=== PATIENT | female | born 1980 | race African-American/Black ===

== ENCOUNTER 2019-02-07 15:02 | Emergency (ER) | payer OTHER ==
[2019-02-07 15:09] VITALS: BP 145/78; PULSE 57; TEMP 98; BMI 31.7
[2019-02-07] MEDS ORDERED: ACETAMINOPHEN 500 MG TABLET (FP) PO ONE (15:11)
--- NOTE | 2019-02-07 15:11 | PDOC ---
Rapid Medical Evaluation Time Seen by Provider: 02/07/19 15:07 Medical Evaluation: Allergies Allergy/AdvReac Type Severity Reaction Status Date / Time shellfish derived Allergy Severe THROAT Verified 11/06/14 11:28 CLOSES 02/07/19 15:07 I have performed a brief in-person evaluation of this patient. The patient presents with a chief complaint of: "I think I am having a miscarriage" (pt unsure if she is , has not had a confirmed yet) (+)vaginal bleeding since yesterday. Not using pads, only bleeds when she urinates. (+) golf ball size clot came out yesterday. (+) pelvic pain which feels like contractions. LMP Jan 16, lasted 5 days. Ab2. Pertinent physical exam findings: discomfort from pain. I have ordered the following: UCG, tylenol The patient will proceed to the ED for further evaluation. Discharge Disposition - Diagnosis Vaginal bleeding - Referrals - Patient Instructions - Post Discharge Activity
[2019-02-07] MEDS ORDERED: ACETAMINOPHEN 325 MG TABLET (FP) ONE (16:00)
--- NOTE | 2019-02-07 16:50 | PDOC ---
*Physical Exam - Vital Signs Last Vital Signs Temp Pulse Resp BP Pulse Ox 98.0 F 57 L 16 145/78 100 02/07/19 15:06 02/07/19 15:06 02/07/19 15:06 02/07/19 15:06 02/07/19 15:06 - Physical Exam Comments: 02/07/19 16:42 HPI: 38yo woman with PMH fibroids, sickle cell trait, HTN presenting with abdominal pain and vaginal bleeding since last night. Patient has baseline dysmenorrhea, heavy regular periods with painful cramps. LMP was January 15. Patient is concerned because her current abdominal pain feels like her prior spontaneous in 2014. Last night her pain and bleeding came on gradually and she passed a "golfball" sized clot. Her pain is low and central in her abdomen and feels like a downward pressure she describes as a contraction. The pain has worsened since yesterday and is now associated with three episodes of NBNB vomiting. Denies fevers but feels chilled, lightheaded, and diaphoretic with the pain. Also endorses increased urinary frequency over the past 3-5 days, denies dysuria. Has been diagnosed with fibroids, never told she has a cyst or fibroid. Hx of abnormal pap smears with culposcopy with negative margins, normal PAPs since. Denies CP / SOB / BM changes. NKDA Meds: "Water Pill" for Htn 5mg PMH: as above +asthma PSH: per chart ED Treatment Course - ADDITIONAL ORDERS Additional order review: Laboratory Results 02/07/19 15:31 Urine HCG, Qual Negative - Medications Given in the ED: ED Medications Discontinued Medications Generic Name Dose Route Start Last Admin Trade Name Nirmala PRN Reason Stop Dose Admin Acetaminophen 1,000 mg 02/07/19 15:11 02/07/19 16:04 Tylenol - PO 02/07/19 15:12 1,000 mg ONCE ONE Administration Discharge - Discharge Information Clinical Impression/Diagnosis: Vaginal bleeding - Follow up/Referral Referrals: Alexa Alcazar MD [Primary Care Provider] - - Patient Discharge Instructions - Post Discharge Activity
--- NOTE | 2019-02-07 16:56 | PDOC ---
History of Present Illness - General Chief Complaint: Vaginal Bleeding Stated Complaint: POSSIBLE MISCARIAGE Time Seen by Provider: 02/07/19 15:07 History Source: Patient, Significant Other Exam Limitations: No Limitations - History of Present Illness Initial Comments: 02/07/19 16:51 HPI: 38yo woman with PMH fibroids, sickle cell trait, HTN presenting with abdominal pain and vaginal bleeding since last night. Patient has baseline dysmenorrhea, heavy regular periods with painful cramps. LMP was January 15. Patient is concerned because her current abdominal pain feels like her prior spontaneous in 2014. Last night her pain and bleeding came on gradually and she passed a "golfball" sized clot. Her pain is low and central in her abdomen and feels like a downward pressure she describes as a contraction. The pain has worsened since yesterday and is now associated with three episodes of NBNB vomiting. Denies fevers but feels chilled, lightheaded, and diaphoretic with the pain. Also endorses increased urinary frequency over the past 3-5 days, denies dysuria. Has been diagnosed with fibroids, never told she has a cyst or fibroid. Hx of abnormal pap smears with culposcopy with negative margins, normal PAPs since. Denies CP / SOB / BM changes. NKDA Meds: "Water Pill" for Htn 5mg PMH: as above +asthma PSH: per chart Past History - Travel Traveled outside of the country in the last 30 days: No Close contact w/someone who was outside of country & ill: No - Past Medical History Allergies/Adverse Reactions: Allergies Allergy/AdvReac Type Severity Reaction Status Date / Time shellfish derived Allergy Severe THROAT Verified 02/07/19 15:09 CLOSES Home Medications: Ambulatory Orders Ibuprofen [Motrin -] 600 mg PO QID PRN #28 tablet 11/09/14 Amlodipine Besylate 5 mg PO DAILY 02/07/19 hydrALAZINE HCL [Apresoline -] 0 mg PO DAILY 02/07/19 Anemia: (SICKLE CELL TRAIT) Asthma: Yes COPD: No HTN: Yes (DURING ) - Reproductive History Is Patient Now?: Yes (#): 6 Para: 3 Therapeutic (s) & number: Yes Spontaneous : 2 - Psycho Social/Smoking Cessation Hx Smoking History: Never smoked Have you smoked in the past 12 months: Yes Number of Cigarettes Smoked Daily: 5 'Breaking Loose' booklet given: 11/09/14 Hx Alcohol Use: Yes Drug/Substance Use Hx: No Substance Use Type: None Review of Systems - Review of Systems Able to Perform ROS?: Yes Is the patient limited Wallisian proficient: Yes Constitutional: Yes: Chills, Diaphoresis. No: Fever, Night Sweats, Weakness, Weight Stable HEENTM: No: Eye Pain, Recent change in vision, Nose Congestion, Tinnitus, Throat Swelling, Mouth Pain Respiratory: No: Cough, Shortness of Breath, Wheezing Cardiac (ROS): No: Chest Pain, Edema, Irregular Heart Rate, Palpitations, Syncope, Chest Tightness ABD/GI: Yes: Nausea, Vomiting. No: Constipated, Diarrhea, Indigestion : Yes: Frequency. No: Burning, Dysuria, Discharge, Hematuria, Incontinence, Pain Musculoskeletal: No: Back Pain, Joint Pain, Muscle Weakness, Neck Pain Integumentary: No: Bruising, Pruritus, Rash Neurological: No: Headache, Numbness, Tingling, Weakness Psychiatric: No: Stressors, Change in Appetite Endocrine: No: Intolerance to Cold, Intolerance to Heat, Increased Thirst, Increased Urine, Unexplained Weight Gain, Unexplained Weight Loss Hematologic/Lymphatic: No: Anemia, Blood Clots, Easy Bleeding All Other Systems: Reviewed and Negative *Physical Exam - Vital Signs Last Vital Signs Temp Pulse Resp BP Pulse Ox 98.0 F 57 L 16 145/78 100 02/07/19 15:06 02/07/19 15:06 02/07/19 15:06 02/07/19 15:06 02/07/19 15:06 - Physical Exam Comments: 02/07/19 16:53 Vitals reviewed, notable for HTN, otherwise AFVSS WDWN woman, no acute distress, sitting on hospital bed EOMI, MMM, NCAT, normal morphologies RRR, nl s1/s2, no murmurs appreciated CTABL, normal WOB, no wheezes / rales / rhonchi Soft, nontender - "pain" suprapubically but not reproducible with exam, nondistended WWP, no clubbing / cyanosis / edema 2+ radial and PT pulses alert and oriented, MAEE, CN grossly intact 02/07/19 17:47 SSE: normal external female genitalia and vaginal mucosa, no lesions, some blood present, OS visualized and closed, no other discharge observed BME: some discomfort with exam however, no CMT, normal size uterus without adnexal tenderness or fullness, no fibroids appreciated ED Treatment Course - LABORATORY CBC & Chemistry Diagram: 02/07/19 17:35 02/07/19 17:35 - ADDITIONAL ORDERS Additional order review: Laboratory Results 02/07/19 15:31 Urine HCG, Qual Negative - Medications Given in the ED: ED Medications Discontinued Medications Generic Name Dose Route Start Last Admin Trade Name Nirmala PRN Reason Stop Dose Admin Acetaminophen 1,000 mg 02/07/19 15:11 02/07/19 16:04 Tylenol - PO 02/07/19 15:12 1,000 mg ONCE ONE Administration Medical Decision Making - Medical Decision Making 02/07/19 16:56 38yo woman with PMH fibroids, sickle cell trait, HTN presenting with abdominal pain and vaginal bleeding since last night with clot passage and waves of squeezing pain. DDX: Miscarriage vs fibroid pain vs dysfunctional uterine bleeding vs primary dysmenorrhea vs normal menses with superimposed UTI symptoms. Urine test negative. -UA, UCx -CBC, CMP -TVUS -Pelvic exam 02/07/19 18:56 -Ordered for 30mg IM toradol -Taking patient to [place] -UA with gross blood - c/w grossly bloody sample 2/2 vaginal bleeding -No signs of UTI -No leukocytosis or anemia, normal LFTs 02/07/19 20:08 -TVUS without anexal pathology, ?fibroid noted in uterus c/w outside diagnosis of fibroids -Pain likely related to menses, patient to followup with her [employer]TER Discharge - Discharge Information Problems reviewed: Yes Clinical Impression/Diagnosis: Vaginal bleeding Condition: Improved Disposition: HOME - Admission No - Follow up/Referral Referrals: Alexa Alcazar MD [Primary Care Provider] - - Patient Discharge Instructions Patient Printed Discharge Instructions: DI for Uterine Fibroids, DI for Abnormal Uterine Bleeding Additional Instructions: 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 Please return to the ED for any new or concerning symptoms including but not limited to: pain unrelieved by over the counter pain medications, inability to tolerate food by mouth, bleeding exceeding the rate of 2 pads per hour for 2 hours - or bleeding beyond your usual menses. - Post Discharge Activity
--- NOTE | 2019-02-07 17:04 | PDOC ---
Attending Attestation - Resident Resident Name: FitoJanAndrea - ED Attending Attestation I have performed the following: I have examined & evaluated the patient, The case was reviewed & discussed with the resident, I agree w/resident's findings & plan, Exceptions are as noted - HPI HPI: 02/07/19 17:02 38y F hx of fibroids, htn, sickle cell trait, presents with lower abd pain and vag spotting since last nigh. Pain is squeezing presurelike in nature, gradual onset, associated vaginal spotting. Pt notes she passed a golf bll sized clot last night but pain has worsened. Pain is assoicated with vomiting and diapohersis and feels similar in nature to prior fibroids and periods. Pt also endorses urinary frequency consistent with a prior UTI in the past. No fever/ cihlls, cp, sob, dizziness, back pain. 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
[2019-02-07 18:06] LABS: EOS % 1.6 % (0-4.5); HEMATOCRIT 34.1 % (32.4-45.2); HEMOGLOBIN 10.9 GM/dL (10.7-15.3); LYMPH % 22.7 % (8-40); MCH 24.8 pg (25.7-33.7); MCHC 31.9 g/dl (32.0-36.0); MEAN CELL VOLUME 77.8 fl (80-96); MEAN PLT VOLUME 8.6 fl (7.5-11.1); MONO % 11.3 % (3.8-10.2); NEUT % 63.4 % (42.8-82.8); PLATELET COUNT 380 K/MM3 (134-434); RBC 4.38 M/mm3 (3.60-5.2); RDW 17.6 % (11.6-15.6); WHITE BLOOD COUNT 7.9 K/mm3 (4.0-10.0)
[2019-02-07 18:20] LABS: HYALINE CASTS 42 /lpf (0-8); URINE APPEARANCE CLEAR; URINE BACTERIA 3.8 /hpf (NEGATIVE); URINE BILIRUBIN NEGATIVE (NEGATIVE); URINE COLOR YELLOW; URINE GLUCOSE (UA) NEGATIVE (NEGATIVE); URINE KETONE TRACE (NEGATIVE); URINE LEUK ESTERASE NEGATIVE (NEGATIVE); URINE NITRITE NEGATIVE (NEGATIVE); URINE PROTEIN 3+ (NEGATIVE); URINE RBC 928 /hpf (0-4); URINE UROBILINOGEN 0.2 mg/dL (0.2-1.0); URINE WBC 1 /hpf (0-5)
[2019-02-07 18:35] LABS: ALBUMIN 4.3 g/dl (3.4-5.0); BILIRUBIN,TOTAL 0.5 mg/dL (0.2-1); BLOOD UREA NITROGEN 8.1 mg/dL (7-18); CALCIUM 9.4 mg/dL (8.5-10.1); CREATININE 0.8 mg/dL (0.55-1.3); POTASSIUM 3.8 mmol/L (3.5-5.1); TOT PROT 8.4 g/dl (6.4-8.2)
[2019-02-07] MEDS ORDERED: KETOROLAC TROMETHAMINE 30 MG/1 ML VIAL IM ONE (18:55)
[2019-02-07] MEDS ORDERED: KETOROLAC TROMETHAMINE 30 MG/1 ML VIAL ONE (19:11)
== END 2019-02-07 20:31 | disposition home or self-care (01) ==
LOC: JER 15:02
PROC: 3E0233Z Introduction of Anti-inflammatory into Muscle, Percutaneous Approach (ICD-10-PCS; principal; 2019-02-07)
DX: N93.9 Abnormal uterine and vaginal bleeding, unspecified (principal); D21.9 Benign neoplasm of connective and other soft tissue, unspecified; D57.3 Sickle-cell trait; I10 Essential (primary) hypertension; Z91.013 Allergy to seafood; Z72.0 Tobacco use; J45.909 Unspecified asthma, uncomplicated
CPT/HCPCS: 36415; 76830-TC; 80053; 81003; 84703; 85025; 87086; 96372; 99283-25

== ENCOUNTER 2019-10-24 19:48 | Emergency (ER) | payer OTHER ==
[2019-10-24 20:04] VITALS: BP 137/94; PULSE 93; TEMP 100.2; BMI 32.5
--- NOTE | 2019-10-24 20:12 | PDOC ---
Rapid Medical Evaluation Chief Complaint: Sore Throat Time Seen by Provider: 10/24/19 19:54 Medical Evaluation: Allergies Allergy/AdvReac Type Severity Reaction Status Date / Time shellfish derived Allergy Severe THROAT Verified 10/24/19 20:03 CLOSES Vital Signs Temp Pulse Resp BP Pulse Ox 100.2 F H 93 H 18 137/94 100 10/24/19 20:01 10/24/19 20:01 10/24/19 20:01 10/24/19 20:01 10/24/19 20:01 10/24/19 20:09 HPI: COVID-19 CDC guideline data points: The patient is a 39 y/o female with h/o asthma and sickle cell trait who presents to the ED with complaint of throat pain, fever and chills that started today. The patient states she woke up in a pile of sweat earlier. She denies n/v/d/c. She denies any cough. She denies recent travel or COVID contacts. She is not a cigarette smoker. She took Tylenol 4 hours ago for her symptoms. ROS: NEGATIVE: difficulty breathing, shortness of breath, chest pain, lightheadedness, dizziness, nausea, vomiting and diarrhea. Other 12 point ROS reviewed and negative. Positive: sore throat Exam: General: NAD, Well-Appearing, Awake, Alert Oriented x3. Vital signs stable. ENT: No rhinorrhea or nasal congestion. b/l tonsillar edema with moderate erythema, no exudates, + anterior cervical lymphadenopathy appreciated Neck: FROM, no midline tenderness. Lungs: Clear to auscultation bilaterally without wheezes, rhonchi or rales. Normal excursion. Patient is able to speak in full sentences. Heart: HR: 93, Regular rhythm, S1-S2 present, no murmurs rubs or gallops. Abdomen: Non-distended. MSK/Extremities: No decrease ROM, No obvious deformities. No obvious cyanosis noted. Neuro: Normal Gait, Cranial Nerves II through XII Grossly Intact. Skin: No obvious rashes, bruising. Color Normal Appearing. Assessment/Plan: The patient is a 39 y/o female with h/o asthma and sickle cell trait who presents to the ED with complaint of throat pain, fever and chills that started today. Patient has a history of this/these comorbidities: asthma, sickle cell trait, denies recent travel and known COVID exposure. Patient does not meet testing criteria at this time. ASSESSMENT: Denies recent travel and known Covid exposure. Treatment: strep swab ordered 10/24/19 20:53 Laboratory Tests 10/24/19 20:01 Group A Strep Rapid Negative Pt made aware that her strep swab is negative. She has been made aware that her symptoms are likely viral. She should f/u with her primary doctor within 2 days. Discharge Disposition - Diagnosis Sore throat - Discharge Dispostion Disposition: HOME Condition at time of disposition: Stable - Referrals - Patient Instructions Printed Discharge Instructions: [facility]-Coronavirus Instructions, [facility] COVID-19 Isolation Protocol, DI for Viral Pharyngitis Additional Instructions: You were seen for your cough and possible Coronavirus (COVID-19) Please call the [facility] testing center to make an appointment at or you can call [facility] at from 8:30 AM to 6 PM; or you can visit the [facility] website: [email or web address] for more information about testing at the [facility]. Take Tylenol 650 mg every 6 hours as needed for fever or pain. You may take Robitussin or other [id number] cough syrup. Follow the dosing instructions on the bottle. Warm tea, honey, and salt water gargles may help your symptoms. Please take precautions and self quarantine for 2 weeks and follow-up with your primary care doctor and the Department of Health. Return to the nearest emergency department for shortness of breath, difficulty breathing, chest pain, or if you have any changes in your symptoms. You were tested for strep throat which was negative. Follow up with your primary doctor within 2 days for clearance back to work. - Post Discharge Activity
== END 2019-10-24 21:20 | disposition home or self-care (01) ==
LOC: JER 19:48
DX: R07.0 Pain in throat (principal)
CPT/HCPCS: 87070; 87880; 99282-25

== ENCOUNTER 2021-06-09 14:22 | Emergency (ER) | payer OTHER ==
[2021-06-09 14:56] VITALS: BP 126/85; PULSE 60; TEMP 97.9; BMI 31.7
[2021-06-09] MEDS ORDERED: SODIUM CHLORIDE 0.9% 500 ML INFUS.BAG IV ONE (15:19)
[2021-06-09] MEDS ORDERED: ONDANSETRON 4 MG/2 ML VIAL IVPUSH ONE (15:20)
[2021-06-09] MEDS ORDERED: ONDANSETRON 4 MG/2 ML VIAL ONE (15:25)
[2021-06-09 16:12] LABS: BASO % 1.3 % (0-2.0); EOS % 3.9 % (0-4.5); HEMATOCRIT 35.9 % (32.4-45.2); LYMPH % 33.5 % (8-40); MCH 22.8 pg (25.7-33.7); MCHC 30.6 g/dl (32.0-36.0); MEAN CELL VOLUME 74.6 fl (80-96); MEAN PLT VOLUME 8.3 fl (7.5-11.1); MONO % 13.4 % (3.8-10.2); NEUT % 47.9 % (42.8-82.8); PLATELET COUNT 569 10^3/uL (134-434); RBC 4.82 M/mm3 (3.60-5.2); RDW 19.7 % (11.6-15.6); WHITE BLOOD COUNT 7.8 K/mm3 (4.0-10.0)
[2021-06-09 16:26] LABS: CALCIUM 10.7 mg/dL (8.5-10.1)
[2021-06-09 16:27] LABS: ALBUMIN 4.3 g/dl (3.4-5.0); BLOOD UREA NITROGEN 9.5 mg/dL (7-18)
[2021-06-09 16:30] LABS: CREATININE 0.7 mg/dL (0.55-1.3)
[2021-06-09 16:31] LABS: BILIRUBIN,TOTAL 0.4 mg/dL (0.2-1); TOT PROT 8.9 g/dl (6.4-8.2)
[2021-06-09 16:45] LABS: URINE APPEARANCE CLEAR; URINE BILIRUBIN NEGATIVE (NEGATIVE); URINE COLOR YELLOW; URINE GLUCOSE (UA) NEGATIVE (NEGATIVE); URINE KETONE NEGATIVE (NEGATIVE); URINE LEUK ESTERASE NEGATIVE (NEGATIVE); URINE NITRITE NEGATIVE (NEGATIVE); URINE PROTEIN NEGATIVE (NEGATIVE)
== END 2021-06-09 17:30 | disposition home or self-care (01) ==
LOC: JER 14:22
PROC: 3E033GC Introduction of Other Therapeutic Substance into Peripheral Vein, Percutaneous Approach (ICD-10-PCS; principal; 2021-06-09)
DX: R11.10 Vomiting, unspecified (principal); F12.99 Cannabis use, unspecified with unspecified cannabis-induced disorder
CPT/HCPCS: 36415; 80053; 81003; 83690; 84703; 85025; 87086; 99284-25

== ENCOUNTER 2022-03-02 04:05 | Day surgery (SDC) | payer OTHER ==
[2022-02-27 12:51] VITALS: BMI 31.7
[2022-03-02] MEDS ORDERED: GABAPENTIN 300 MG CAPSULE ONE (06:25)
[2022-03-02] MEDS ORDERED: PHENAZOPYRIDINE HCL 100 MG TABLET (FP) ONE (06:25)
[2022-03-02] MEDS ORDERED: ceFAZolin SODIUM 1 GM VIAL ONE (06:25)
[2022-03-02] MEDS ORDERED: ACETAMINOPHEN INJECTION 100 ML IVPB ONE (06:39)
[2022-03-02] MEDS ORDERED: ACETAMINOPHEN 1000 MG/100 ML BAG IVPB ONE (07:00)
[2022-03-02] MEDS ORDERED: GABAPENTIN 300 MG CAPSULE PO ONE (07:00)
[2022-03-02] MEDS ORDERED: PHENAZOPYRIDINE HCL 100 MG TABLET (FP) PO ONE (07:00)
[2022-03-02] MEDS ORDERED: TRANEXAMIC ACID 1000 MG/10 ML VIAL IVPUSH ONE (07:00)
[2022-03-02] MEDS ORDERED: CEFAZOLIN 2 GM in DEXTROSE 5%-WATER - 100 ML IVPB ONE (07:00)
[2022-03-02] MEDS ORDERED: BUPIVACAINE HCL/PF 0.5% (5MG/ML) 10 ML VIAL ONE ×2 (07:33→07:40)
[2022-03-02] MEDS ORDERED: BUPIVACAINE LIPOSOME/PF (EXPAREL) 266 MG/20 ML VIAL ONE (07:33)
[2022-03-02] MEDS ORDERED: MIDAZOLAM HCL 2 MG/2 ML SINGLE DOSE VIAL ONE (07:34)
[2022-03-02] MEDS ORDERED: LIDOCAINE HCL/PF 2% SDV 5ML VIAL ONE (07:56)
[2022-03-02] MEDS ORDERED: PROPOFOL 20 ML ONE (07:56)
[2022-03-02] MEDS ORDERED: ONDANSETRON 4 MG/2 ML VIAL ONE (07:56)
[2022-03-02] MEDS ORDERED: DEXAMETHASONE SOD PHOSPHATE 4 MG/1 ML VIAL ONE ×2 (07:56→08:22)
[2022-03-02] MEDS ORDERED: ROCURONIUM BROMIDE 50 MG/5 ML SYRINGE ONE ×2 (08:01→08:32)
[2022-03-02] MEDS ORDERED: ceFAZolin SODIUM 1 GM VIAL IVPB ONE (08:20)
[2022-03-02] MEDS ORDERED: TRANEXAMIC ACID 1000 MG/10 ML VIAL ONE (08:21)
[2022-03-02] MEDS ORDERED: KETOROLAC TROMETHAMINE 30 MG/1 ML VIAL ONE (09:07)
[2022-03-02] MEDS ORDERED: NEOSTIGMINE METHYLSULFATE 0.5 MG/ML - 10 ML MDV ONE (09:19)
[2022-03-02] MEDS ORDERED: GLYCOPYRROLATE 0.2 MG/1 ML VIAL ONE (09:20)
[2022-03-02] MEDS ORDERED: amLODIPine BESYLATE 5 MG TABLET (FP) PO SCH (10:00)
[2022-03-02] MEDS ORDERED: hydrALAZINE HCL 10 MG TABLET PO ONE (10:00)
[2022-03-02] MEDS ORDERED: oxyCODONE HCL 5 MG TABLET PO PRN ×4 (10:21→10:41)
[2022-03-02] MEDS ORDERED: ONDANSETRON 4 MG/2 ML VIAL IVPUSH PRN ×3 (10:21→10:41)
[2022-03-02] MEDS ORDERED: PROMETHAZINE HCL 25 MG/1 ML VIAL IVPUSH PRN ×2 (10:21→10:41)
[2022-03-02] MEDS ORDERED: LACTATED RINGERS SOLUTION 1,000 ML IV SCH (10:30)
[2022-03-02] MEDS ORDERED: BISACODYL 5 MG TABLET.DR (FP) PO PRN (10:41)
[2022-03-02] MEDS ORDERED: SODIUM CHLORIDE 1,000 ML IV SCH (10:41)
[2022-03-02] MEDS ORDERED: DOCUSATE SODIUM 100 MG CAPSULE (FP) PO PRN (10:41)
[2022-03-02] MEDS ORDERED: SIMETHICONE 80 MG TAB.CHEW (FP) PO PRN (10:41)
[2022-03-02] MEDS: ACETAMINOPHEN 500 MG TABLET (FP) PO SCH ×2 (16:48→22:01)
[2022-03-02] MEDS: CEFAZOLIN 1 GM in DEXTROSE 5%-WATER - 50 ML IVPB SCH (16:49)
[2022-03-02] MEDS ORDERED: ACETAMINOPHEN 500 MG TABLET (FP) PO SCH (17:00)
[2022-03-02] MEDS: KETOROLAC TROMETHAMINE 30 MG/1 ML VIAL IVPUSH SCH (17:55)
[2022-03-02 18:26] LABS: HEMATOCRIT 30.3 % (32.4-45.2); HEMOGLOBIN 9.8 GM/dL (10.7-15.3); MCH 25.8 pg (25.7-33.7); MCHC 32.4 g/dl (32.0-36.0); MEAN CELL VOLUME 79.8 fl (80-96); MEAN PLT VOLUME 8.1 fl (7.5-11.1); PLATELET COUNT 387 10^3/uL (134-434); RDW 21.5 % (11.6-15.6); WHITE BLOOD COUNT 10.5 K/mm3 (4.0-10.0)
[2022-03-02 18:42] LABS: CALCIUM 8.5 mg/dL (8.5-10.1)
[2022-03-02 18:43] LABS: BLOOD UREA NITROGEN 3.8 mg/dL (7-18)
[2022-03-02 18:45] LABS: CREATININE 0.7 mg/dL (0.55-1.3)
[2022-03-02] MEDS ORDERED: KETOROLAC TROMETHAMINE 30 MG/1 ML VIAL IVPUSH SCH (20:00)
[2022-03-03] MEDS: CEFAZOLIN 1 GM in DEXTROSE 5%-WATER - 50 ML IVPB SCH ×2 (00:06→07:10)
[2022-03-03 00:44] VITALS: RESP 18
[2022-03-03] MEDS: KETOROLAC TROMETHAMINE 30 MG/1 ML VIAL IVPUSH SCH (02:27)
[2022-03-03] MEDS: ACETAMINOPHEN 500 MG TABLET (FP) PO SCH ×2 (03:51→10:00)
[2022-03-03 06:17] VITALS: TEMP 98.6
[2022-03-03 08:05] LABS: HEMATOCRIT 27.3 % (32.4-45.2); HEMOGLOBIN 8.9 GM/dL (10.7-15.3); MCH 25.9 pg (25.7-33.7); MCHC 32.6 g/dl (32.0-36.0); MEAN CELL VOLUME 79.5 fl (80-96); MEAN PLT VOLUME 8.4 fl (7.5-11.1); PLATELET COUNT 342 10^3/uL (134-434); RBC 3.44 M/mm3 (3.60-5.2); RDW 21.9 % (11.6-15.6); WHITE BLOOD COUNT 14.1 K/mm3 (4.0-10.0)
[2022-03-03] MEDS ORDERED: IBUPROFEN 600 MG TABLET (FP) PO PRN (08:45)
[2022-03-03 08:57] LABS: BLOOD UREA NITROGEN 4.3 mg/dL (7-18); CALCIUM 8.3 mg/dL (8.5-10.1)
[2022-03-03 09:01] LABS: CREATININE 0.5 mg/dL (0.55-1.3)
[2022-03-03] MEDS ORDERED: ENOXAPARIN NA (PORCINE) 40 MG/0.4 ML DISP.SYRIN SQ SCH (10:00)
[2022-03-03] MEDS ORDERED: hydrALAZINE HCL 10 MG TABLET PO SCH (10:00)
[2022-03-03] MEDS ORDERED: amLODIPine BESYLATE 5 MG TABLET (FP) PO SCH (10:00)
[2022-03-03] MEDS ORDERED: ACETAMINOPHEN 500 MG TABLET (FP) PO PRN (11:11)
[2022-03-03 14:12] VITALS: BP 109/59; PULSE 62
== END 2022-03-03 15:25 | disposition home or self-care (01) ==
LOC: JASUSAT 04:05 → J3W 12:59 → JASUSAT 03-03 15:25
PROVIDERS: ATTEND Obstetrics & Gynecology
PROC: 0UB24ZZ Excision of Bilateral Ovaries, Percutaneous Endoscopic Approach (ICD-10-PCS; 2022-03-02)
PROC: 0UT9FZZ Resection of Uterus, Via Natural or Artificial Opening With Percutaneous Endoscopic Assistance (ICD-10-PCS; principal; 2022-03-02 07:30)
PROC: 0UT7FZZ Resection of Bilateral Fallopian Tubes, Via Natural or Artificial Opening With Percutaneous Endoscopic Assistance (ICD-10-PCS; 2022-03-02 07:30)
DX: D25.1 Intramural leiomyoma of uterus (principal); D25.0 Submucous leiomyoma of uterus; N83.202 Unspecified ovarian cyst, left side; N83.201 Unspecified ovarian cyst, right side; N72 Inflammatory disease of cervix uteri
CPT/HCPCS: 36415; 80048; 85027; 86850; 86900; 86901; 88305-TC; 88307-TC; 94010; 94760

== ENCOUNTER 2022-08-13 19:48 | Emergency (ER) | payer OTHER ==
[2022-08-13 20:03] VITALS: BP 137/87; PULSE 78; RESP 18; TEMP 98.7; BMI 32.1
[2022-08-13] MEDS ORDERED: AZITHROMYCIN 500 MG TABLET PO ONE (22:23)
[2022-08-13] MEDS ORDERED: AZITHROMYCIN 250 MG TABLET ONE (22:24)
== END 2022-08-13 22:29 | disposition home or self-care (01) ==
LOC: JERFT 19:48 → JER 19:48 → JERFT 22:29
DX: H66.91 Otitis media, unspecified, right ear (principal); J06.9 Acute upper respiratory infection, unspecified; H92.01 Otalgia, right ear; R07.0 Pain in throat; R09.81 Nasal congestion; R05.1 Acute cough
CPT/HCPCS: 71046-TC-FY; 99283-25

== ENCOUNTER 2024-07-05 10:50 | Emergency (ER) | payer OTHER ==
[2024-07-05 10:57] VITALS: BP 123/91; PULSE 80; RESP 18; TEMP 99.9; BMI 30.9
[2024-07-05] MEDS ORDERED: DEXAMETHASONE SOD PHOSPHATE 10 MG/1 ML VIAL ONE (11:55)
[2024-07-05] MEDS ORDERED: IBUPROFEN 600 MG TABLET (FP) PO ONE (11:55)
[2024-07-05] MEDS: IBUPROFEN 600 MG TABLET (FP) PO ONE (12:02)
[2024-07-05] MEDS: DEXAMETHASONE SOD PHOSPHATE 10 MG/1 ML VIAL PO ONE (12:02)
[2024-07-05 12:16] LABS: PH,URINE 6.5 (5.0-8.0); URINE APPEARANCE CLEAR; URINE BILIRUBIN NEGATIVE (NEGATIVE); URINE COLOR YELLOW; URINE GLUCOSE (UA) NEGATIVE (NEGATIVE); URINE KETONE TRACE (NEGATIVE); URINE LEUK ESTERASE NEGATIVE (NEGATIVE); URINE NITRITE NEGATIVE (NEGATIVE); URINE PROTEIN TRACE (NEGATIVE)
[2024-07-05 12:31] LABS: THROAT:GRP A STREP DETECTED (NOTDETECTED)
== END 2024-07-05 13:30 | disposition home or self-care (01) ==
LOC: JERFT 10:50
DX: J02.0 Streptococcal pharyngitis (principal); R51.9 Headache, unspecified; R05.9 Cough, unspecified; R68.83 Chills (without fever); R10.2 Pelvic and perineal pain; R39.15 Urgency of urination
CPT/HCPCS: 0241U-QW; 81003; 87086; 87651; 99283-25; J1100